=== PATIENT | male | born 1945 | race Asian ===

== ENCOUNTER → 2020-01-25 | Outpatient (CLI) | payer MEDICARE ==
[~2020-01-25] MED LIST: ATOR10TA9 PO; DABI150C PO; FENO160T PO; FINA5TAB4 PO; LISI40TA PO; TAMS0.4C2 PO; metoprolol PO
== END | disposition home or self-care (01) ==
LOC: CVU 09:43
PROVIDERS: ATTEND Internal Medicine Cardiovascular Disease
DX: Z01.810 Encounter for preprocedural cardiovascular examination (principal); I08.8 Other rheumatic multiple valve diseases; I11.9 Hypertensive heart disease without heart failure
CPT/HCPCS: 93306

== ENCOUNTER 2020-02-17 11:39 | Outpatient (CLI) | payer MEDICARE ==
[~2020-02-17 11:39] MED LIST changes: +REGADENOSON 0.4 MG/5 ML SYRINGE ONE
== END 2020-02-17 23:59 | disposition home or self-care (01) ==
LOC: CFH 11:39
PROVIDERS: ATTEND Internal Medicine Cardiovascular Disease
DX: Z01.810 Encounter for preprocedural cardiovascular examination (principal); I48.91 Unspecified atrial fibrillation; I10 Essential (primary) hypertension; I34.0 Nonrheumatic mitral (valve) insufficiency
CPT/HCPCS: 78452; 93017; A9502; J2785

== ENCOUNTER → 2020-03-21 | Outpatient (CLI) | payer MEDICARE ==
[~2020-03-21] MED LIST changes: +ALLO100T30 PO; +AMLO-150 PO; +APIX5TAB PO; +CALC1CAP8 PO; +MULT-717 PO; -REGADENOSON 0.4 MG/5 ML SYRINGE ONE; +VITA100C10 PO
== END | disposition home or self-care (01) ==
LOC: STAR 13:50
PROVIDERS: ATTEND Urology
DX: Z01.812 Encounter for preprocedural laboratory examination (principal); Z20.828 Contact with and (suspected) exposure to other viral communicable diseases; N40.1 Benign prostatic hyperplasia with lower urinary tract symptoms; I48.91 Unspecified atrial fibrillation
CPT/HCPCS: 87635; 93005

== ENCOUNTER 2020-03-27 07:23 | Day surgery (SDC) | payer MEDICARE ==
[~2020-03-27] VITALS: Ht 165.1 cm; Wt 73.0 kg
[2020-03-27] MEDS ORDERED: CHLORHEXIDINE 15 ML UDC MM STA (07:38)
[2020-03-27] MEDS ORDERED: CHLORHEXIDINE 15 ML UDC ONE (07:43)
[2020-03-27 07:54] VITALS: BP 108/72
[2020-03-27] MEDS ORDERED: LACTATED RINGERS 1,000 ML IV SCH (08:00)
[2020-03-27] MEDS ORDERED: FENTANYL PF 250 MCG/5ML ONE (08:00)
[2020-03-27] MEDS ORDERED: ONDANSETRON 2MG/ML, 2ML ONE (09:23)
[2020-03-27] MEDS ORDERED: NEOSTIGMINE 1 MG/ML, 10ML ONE (09:23)
[2020-03-27] MEDS ORDERED: PHENYLEPHRINE 10 MG/ML ONE (09:23)
[2020-03-27] MEDS ORDERED: CEFAZOLIN 1,000 MG ONE (09:23)
[2020-03-27] MEDS ORDERED: SUCCINYLCHOLINE 20 MG/ML, 10ML ONE (09:23)
[2020-03-27] MEDS ORDERED: ROCURONIUM 10MG/ML,5ML ONE (09:23)
[2020-03-27] MEDS ORDERED: LIDOCAINE-MPF 2% ,5ML ONE (09:23)
[2020-03-27] MEDS ORDERED: PROPOFOL 10 MG/ML, 20ML ONE (09:23)
[2020-03-27] MEDS ORDERED: GLYCOPYRROLATE 0.2MG/1ML, 5ML ONE (09:23)
[2020-03-27] MEDS ORDERED: DEXAMETHASONE 4 MG/ML, 1ML ONE (09:23)
[2020-03-27] MEDS ORDERED: METHOCARBAMOL 1,000 MG in DEXTROSE 5% 100 ML IV PRN (09:30)
[2020-03-27] MEDS ORDERED: METOCLOPRAMIDE 5 MG/ML, 2ML IVPush PRN (09:30)
[2020-03-27] MEDS ORDERED: METOPROLOL 1 MG/ML, 5ML IV PRN (09:30)
[2020-03-27] MEDS ORDERED: OXYcodone 5 MG/5 ML ORAL.SOL UDC PO PRN (09:30)
[2020-03-27] MEDS ORDERED: hydrALAzine 20 MG/ML, 1ML IV PRN (09:30)
[2020-03-27] MEDS ORDERED: ACETAMINOPHEN 325 MG TABLET PO PRN (09:30)
[2020-03-27] MEDS ORDERED: ONDANSETRON 2MG/ML, 2ML IVPush PRN (09:30)
[2020-03-27] MEDS ORDERED: PROMETHAZINE 12.5 MG SUPP PR PRN (09:30)
[2020-03-27] MEDS ORDERED: HYDROmorphone 1 MG/ML, 1ML INJ IVPush PRN (09:30)
[2020-03-27] MEDS ORDERED: EPHEDRINE 50 MG/ML, 1ML IVPush PRN (09:30)
[2020-03-27] MEDS ORDERED: LABETALOL 5MG/ML, 20ML IV PRN (09:30)
[2020-03-27] MEDS ORDERED: HALOPERIDOL 5 MG/ML IV PRN (09:30)
[2020-03-27] MEDS ORDERED: FENTANYL PF 100 MCG/2ML IV PRN (09:30)
== END 2020-03-27 13:35 | disposition home or self-care (01) ==
LOC: OUT 07:23
PROVIDERS: ATTEND Urology
DX: N40.1 Benign prostatic hyperplasia with lower urinary tract symptoms (principal); I48.91 Unspecified atrial fibrillation; I10 Essential (primary) hypertension; Z79.899 Other long term (current) drug therapy; Z87.891 Personal history of nicotine dependence; Z79.01 Long term (current) use of anticoagulants; Z98.890 Other specified postprocedural states; Z72.89 Other problems related to lifestyle; Z82.49 Family history of ischemic heart disease and other diseases of the circulatory system; Z83.3 Family history of diabetes mellitus
CPT/HCPCS: 52630; 88305; J0330; J0690; J1100; J2370; J2405; J2704; J2710; J3010; J7120

== ENCOUNTER 2020-04-04 23:40 | Inpatient (IN) | payer MEDICARE ==
[~2020-04-04] VITALS: Ht 165.1 cm; Wt 72.7 kg
[~2020-04-04 23:40] MED LIST changes: -LISI40TA PO; +LISI40TA9 PO
--- NOTE | 2020-04-05 00:40 | NUR ---
14 tajik 3-way muse catheter inserted- blood draining out. Pt reports instant relief after catheter insertion. UA collected and tubed to lab.
--- NOTE | 2020-04-05 00:48 | NUR ---
Pt.'s going home- will call to make sure pt's Joanna made it home per pt instructions. Joanna's phone number is [phone].
[2020-04-05 00:51] LABS: MICROSCOPIC INDICATED
[2020-04-05] MEDS ORDERED: SODIUM CHLORIDE 0.9% 1,000ML IVBOLUS ONE (01:00)
[2020-04-05] MEDS ORDERED: SODIUM CHLORIDE FLUSH 10ML SYR IVF ONE (01:00)
[2020-04-05 01:10] LABS: ALANINE AMINOTRANSFERASE 29 U/L (12-78); ALBUMIN 3.7 g/dL (3.4-5.0); ANION GAP 7 mmol/L (5-15); BASOPHILS % (AUTO) 0 % (0-1); CALCIUM 8.8 mg/dL (8.5-10.1); CHLORIDE 107 mmol/L (98-107); CREATININE 1.57 mg/dL (0.7-1.3); EOSINOPHILS % (AUTO) 2 % (1-7); LYMPHOCYTES % (AUTO) 11 % (22-44); MEAN CORPUSCULAR HEMOGLOBIN 31.1 pg (27.5-34.5); MEAN CORPUSCULAR HGB CONC 33.2 g/dL (33.2-36.2); MEAN PLATELET VOLUME 9.8 fL (7.4-10.4); MONOCYTES % (AUTO) 8 % (2-9); NEUTROPHILS % (AUTO) 78 % (42-75); PLATELET COUNT 191 x10^3/uL (130-400); RED BLOOD COUNT 4.87 x10^6/uL (4.38-5.82)
[2020-04-05 01:13] LABS: ALKALINE PHOSPHATASE 35 U/L (45-117); BILIRUBIN,TOTAL 0.5 mg/dL (0.2-1.0); TOTAL PROTEIN 7.5 g/dL (6.4-8.2)
[2020-04-05 01:30] LABS: INTERNATIONAL NORMALIZED RATIO 1.19 (0.93-1.1); PROTHROMBIN TIME 12.7 Seconds (9.6-11.5)
[2020-04-05 01:36] LABS: MD MORPH REVIEW ONLY
[2020-04-05 01:37] LABS: <PLATELET ESTIMATE> ADEQUATE; <RBC MORPHOLOGY> NORMAL; GIANT PLATELETS 1+; LARGE PLATELETS 1+
[2020-04-05] MEDS ORDERED: CEFTRIAXONE PMX 1GM/50ML 50 ML IV ONE (02:00)
--- NOTE | 2020-04-05 02:00 | NUR ---
Continuous bladder irrigation set-up. Blood draining.
[2020-04-05] MEDS ORDERED: CEFTRIAXONE PMX 1GM/50ML 50 ML ONE (02:37)
--- NOTE | 2020-04-05 02:49 | NUR ---
2500 mL blood red urine out. 2000 mL sterile water in.
--- NOTE | 2020-04-05 02:58 | NUR ---
Report to DANI Butler.
--- NOTE | 2020-04-05 03:17 | NUR ---
assumed care of pt at this time dr crooks at [facility] for admit
[2020-04-05] MEDS ORDERED: LABETALOL 5MG/ML, 20ML IVPush PRN (03:30)
[2020-04-05] MEDS ORDERED: PHARMACY MAY ADJ FOR RENAL FX MC PRN (03:30)
[2020-04-05] MEDS ORDERED: LACTATED RINGERS 1,000 ML IV SCH (03:30)
[2020-04-05] MEDS ORDERED: MELATONIN 5 MG TABLET PO PRN (03:30)
[2020-04-05] MEDS ORDERED: ONDANSETRON 2MG/ML, 2ML IVPush PRN (03:30)
[2020-04-05] MEDS ORDERED: ACETAMINOPHEN 325 MG TABLET PO PRN (03:30)
[2020-04-05 04:09] VITALS: BP 137/92
[2020-04-05 07:17] VITALS: BP 133/83
[2020-04-05] MEDS: SENNA/DOCUSATE TABLET PO SCH (07:57)
[2020-04-05] MEDS ORDERED: LISINOPRIL 40 MG TABLET PO SCH (09:00)
[2020-04-05] MEDS: AMLODIPINE 5 MG TABLET PO SCH (10:51)
[2020-04-05] MEDS: ALLOPURINOL 100 MG TABLET PO SCH (10:51)
[2020-04-05] MEDS: OPIUM/BELLADONNA SUPP.RECT 16.2-30 MG PR PRN (10:52)
[2020-04-05 11:12] LABS: BASOPHILS % (AUTO) 1 % (0-1); EOSINOPHILS % (AUTO) 1 % (1-7); LYMPHOCYTES % (AUTO) 13 % (22-44); MD NO; MEAN CORPUSCULAR HEMOGLOBIN 31.2 pg (27.5-34.5); MEAN CORPUSCULAR HGB CONC 33.2 g/dL (33.2-36.2); MEAN PLATELET VOLUME 9.9 fL (7.4-10.4); MONOCYTES % (AUTO) 8 % (2-9); NEUTROPHILS % (AUTO) 77 % (42-75); PLATELET COUNT 196 x10^3/uL (130-400); RED BLOOD COUNT 4.65 x10^6/uL (4.38-5.82); RED CELL DISTRIBUTION WIDTH 13.9 % (9.4-14.8)
[2020-04-05 11:19] LABS: ANION GAP 8 mmol/L (5-15); CALCIUM 8.8 mg/dL (8.5-10.1); CHLORIDE 107 mmol/L (98-107)
[2020-04-05 11:20] LABS: CREATININE 1.39 mg/dL (0.7-1.3)
[2020-04-05 12:51] VITALS: BP 138/95
[2020-04-05 12:52] VITALS: BP 138/95
[2020-04-05] MEDS: METOPROLOL TARTRATE 25 MG TAB PO SCH (13:06)
[2020-04-05] MEDS: FENOFIBRATE 54 MG TABLET PO SCH (13:07)
[2020-04-05] MEDS: MULTIVITAMIN 1 TABLET PO SCH (13:07)
[2020-04-05 20:58] VITALS: BP 143/79
[2020-04-05] MEDS: ATORVASTATIN 10 MG TABLET PO SCH (21:05)
[2020-04-06 00:38] VITALS: BP 121/77
[2020-04-06] MEDS: CEFTRIAXONE PMX 1GM/50ML 50 ML IV SCH (01:34)
[2020-04-06] MEDS: OPIUM/BELLADONNA SUPP.RECT 16.2-30 MG PR PRN (01:34)
[2020-04-06 05:18] LABS: BASOPHILS % (AUTO) 1 % (0-1); EOSINOPHILS % (AUTO) 3 % (1-7); LYMPHOCYTES % (AUTO) 17 % (22-44); MEAN CORPUSCULAR HEMOGLOBIN 31.1 pg (27.5-34.5); MEAN CORPUSCULAR HGB CONC 32.9 g/dL (33.2-36.2); MEAN PLATELET VOLUME 9.9 fL (7.4-10.4); MONOCYTES % (AUTO) 8 % (2-9); NEUTROPHILS % (AUTO) 72 % (42-75); PLATELET COUNT 187 x10^3/uL (130-400); RED BLOOD COUNT 4.49 x10^6/uL (4.38-5.82)
[2020-04-06 05:23] LABS: MD NO
[2020-04-06 05:28] LABS: ANION GAP 6 mmol/L (5-15); CALCIUM 8.7 mg/dL (8.5-10.1); CHLORIDE 109 mmol/L (98-107)
[2020-04-06 06:57] VITALS: BP 119/79
[2020-04-06] MEDS: AMLODIPINE 5 MG TABLET PO SCH (08:18)
[2020-04-06] MEDS: SENNA/DOCUSATE TABLET PO SCH (08:18)
[2020-04-06] MEDS: FENOFIBRATE 54 MG TABLET PO SCH (08:18)
[2020-04-06] MEDS: MULTIVITAMIN 1 TABLET PO SCH (08:18)
[2020-04-06] MEDS: ALLOPURINOL 100 MG TABLET PO SCH (08:18)
[2020-04-06] MEDS: METOPROLOL TARTRATE 25 MG TAB PO SCH (08:19)
[2020-04-06 12:13] VITALS: BP 121/78
[2020-04-06 19:23] VITALS: BP 143/88
[2020-04-07] MEDS: ATORVASTATIN 10 MG TABLET PO SCH ×2 (00:21→22:17)
[2020-04-07 00:37] VITALS: BP 132/91
[2020-04-07] MEDS: CEFTRIAXONE PMX 1GM/50ML 50 ML IV SCH (02:00)
[2020-04-07 04:55] LABS: BASOPHILS % (AUTO) 1 % (0-1); EOSINOPHILS % (AUTO) 3 % (1-7); LYMPHOCYTES % (AUTO) 19 % (22-44); MD NO; MEAN CORPUSCULAR HEMOGLOBIN 31.2 pg (27.5-34.5); MEAN CORPUSCULAR HGB CONC 33.5 g/dL (33.2-36.2); MEAN PLATELET VOLUME 10.4 fL (7.4-10.4); MONOCYTES % (AUTO) 9 % (2-9); NEUTROPHILS % (AUTO) 68 % (42-75); PLATELET COUNT 201 x10^3/uL (130-400); RED BLOOD COUNT 4.55 x10^6/uL (4.38-5.82); RED CELL DISTRIBUTION WIDTH 14.1 % (9.4-14.8)
[2020-04-07 05:04] LABS: ANION GAP 6 mmol/L (5-15); CALCIUM 8.6 mg/dL (8.5-10.1); CHLORIDE 109 mmol/L (98-107); CREATININE 1.53 mg/dL (0.7-1.3)
[2020-04-07 07:15] VITALS: BP 134/83
[2020-04-07] MEDS: SENNA/DOCUSATE TABLET PO SCH (08:18)
[2020-04-07] MEDS: VITAMIN E 400 UNITS CAPSULE PO SCH (08:18)
[2020-04-07] MEDS: MULTIVITAMIN 1 TABLET PO SCH (08:19)
[2020-04-07] MEDS: AMLODIPINE 5 MG TABLET PO SCH (08:19)
[2020-04-07] MEDS: CALCIUM/VITAMIN D3 250-125 TABLET PO SCH (08:19)
[2020-04-07] MEDS: METOPROLOL TARTRATE 25 MG TAB PO SCH (08:19)
[2020-04-07] MEDS: FENOFIBRATE 54 MG TABLET PO SCH (08:19)
[2020-04-07] MEDS: ALLOPURINOL 100 MG TABLET PO SCH (08:19)
[2020-04-07] MEDS ORDERED: AMLO-150 PO (10:23)
[2020-04-07 13:17] VITALS: BP 107/72
[2020-04-07 19:59] VITALS: BP 125/89
[2020-04-08 00:33] VITALS: BP 137/93
[2020-04-08] MEDS: CEFTRIAXONE PMX 1GM/50ML 50 ML IV SCH (02:58)
[2020-04-08 06:55] VITALS: BP 124/84
[2020-04-08 07:14] LABS: ANION GAP 5 mmol/L (5-15); CALCIUM 9.2 mg/dL (8.5-10.1); CHLORIDE 108 mmol/L (98-107); CREATININE 1.53 mg/dL (0.7-1.3)
[2020-04-08 07:17] LABS: INTERNATIONAL NORMALIZED RATIO 1.1 (0.93-1.1); PROTHROMBIN TIME 11.8 Seconds (9.6-11.5)
[2020-04-08 07:32] LABS: BASOPHILS % (AUTO) 1 % (0-1); EOSINOPHILS % (AUTO) 3 % (1-7); LYMPHOCYTES % (AUTO) 13 % (22-44); MEAN CORPUSCULAR HEMOGLOBIN 31.5 pg (27.5-34.5); MEAN CORPUSCULAR HGB CONC 33.6 g/dL (33.2-36.2); MEAN PLATELET VOLUME 9.8 fL (7.4-10.4); MONOCYTES % (AUTO) 9 % (2-9); NEUTROPHILS % (AUTO) 74 % (42-75); PLATELET COUNT 193 x10^3/uL (130-400); RED BLOOD COUNT 4.59 x10^6/uL (4.38-5.82); RED CELL DISTRIBUTION WIDTH 13.9 % (9.4-14.8)
[2020-04-08 07:38] LABS: MD NO
[2020-04-08] MEDS: FENOFIBRATE 54 MG TABLET PO SCH (08:15)
[2020-04-08] MEDS: ALLOPURINOL 100 MG TABLET PO SCH (08:15)
[2020-04-08] MEDS: AMLODIPINE 5 MG TABLET PO SCH (08:15)
[2020-04-08] MEDS: MULTIVITAMIN 1 TABLET PO SCH (08:15)
[2020-04-08] MEDS: METOPROLOL TARTRATE 25 MG TAB PO SCH (08:15)
[2020-04-08] MEDS: SENNA/DOCUSATE TABLET PO SCH (08:15)
[2020-04-08 12:45] VITALS: BP 110/76
[2020-04-08 19:34] VITALS: BP 121/80
[2020-04-08] MEDS: ATORVASTATIN 10 MG TABLET PO SCH (21:25)
[2020-04-09 00:30] VITALS: BP 135/89
[2020-04-09] MEDS: CEFTRIAXONE PMX 1GM/50ML 50 ML IV SCH (02:25)
[2020-04-09 07:30] VITALS: BP 142/93
[2020-04-09 07:36] LABS: BASOPHILS % (AUTO) 1 % (0-1); EOSINOPHILS % (AUTO) 2 % (1-7); LYMPHOCYTES % (AUTO) 11 % (22-44); MEAN CORPUSCULAR HEMOGLOBIN 31.3 pg (27.5-34.5); MEAN CORPUSCULAR HGB CONC 33.3 g/dL (33.2-36.2); MEAN PLATELET VOLUME 9.2 fL (7.4-10.4); MONOCYTES % (AUTO) 8 % (2-9); NEUTROPHILS % (AUTO) 78 % (42-75); PLATELET COUNT 192 x10^3/uL (130-400); RED BLOOD COUNT 4.39 x10^6/uL (4.38-5.82); RED CELL DISTRIBUTION WIDTH 13.8 % (9.4-14.8)
[2020-04-09 07:47] LABS: ANION GAP 6 mmol/L (5-15); CALCIUM 8.6 mg/dL (8.5-10.1); CHLORIDE 108 mmol/L (98-107)
[2020-04-09 07:49] LABS: MD NO
[2020-04-09] MEDS: CALCIUM/VITAMIN D3 250-125 TABLET PO SCH (09:00)
[2020-04-09] MEDS: ALLOPURINOL 100 MG TABLET PO SCH (09:25)
[2020-04-09] MEDS: VITAMIN E 400 UNITS CAPSULE PO SCH (09:25)
[2020-04-09] MEDS: SENNA/DOCUSATE TABLET PO SCH (09:25)
[2020-04-09] MEDS: METOPROLOL TARTRATE 25 MG TAB PO SCH (09:27)
[2020-04-09] MEDS: FENOFIBRATE 54 MG TABLET PO SCH (09:28)
[2020-04-09] MEDS: MULTIVITAMIN 1 TABLET PO SCH (09:28)
[2020-04-09] MEDS: AMLODIPINE 5 MG TABLET PO SCH (09:32)
[2020-04-09 13:14] VITALS: BP 134/93
[2020-04-09 21:27] VITALS: BP 128/86
[2020-04-09] MEDS: ATORVASTATIN 10 MG TABLET PO SCH (21:31)
[2020-04-10 01:29] VITALS: BP 138/89
[2020-04-10] MEDS: CEFTRIAXONE PMX 1GM/50ML 50 ML IV SCH (01:35)
[2020-04-10 08:07] VITALS: BP 131/85
[2020-04-10] MEDS: ALLOPURINOL 100 MG TABLET PO SCH (08:43)
[2020-04-10] MEDS: MULTIVITAMIN 1 TABLET PO SCH (08:43)
[2020-04-10] MEDS: FENOFIBRATE 54 MG TABLET PO SCH (08:43)
[2020-04-10] MEDS: SENNA/DOCUSATE TABLET PO SCH (08:43)
[2020-04-10] MEDS: AMLODIPINE 5 MG TABLET PO SCH (08:44)
[2020-04-10] MEDS: METOPROLOL TARTRATE 25 MG TAB PO SCH (08:44)
[2020-04-10] MEDS ORDERED: AMOX1TAB64 PO (08:49)
[2020-04-10 14:05] VITALS: BP 132/64
== END 2020-04-10 14:15 | disposition home or self-care (01) | DRG 690 ==
LOC: ED 04-05 01:37 → EDIP 04-05 02:46 → 4NE 04-05 03:43 → DCLOUNGE 04-10 14:09
PROVIDERS: ADMIT Family Medicine; ATTEND Internal Medicine
PROC: 0T9B70Z Drainage of Bladder with Drainage Device, Via Natural or Artificial Opening (ICD-10-PCS; principal; 2020-04-05)
DX: N30.01 Acute cystitis with hematuria (principal); N13.8 Other obstructive and reflux uropathy; E78.5 Hyperlipidemia, unspecified; I48.91 Unspecified atrial fibrillation; M10.9 Gout, unspecified; N18.30 Chronic kidney disease, stage 3 unspecified; N40.1 Benign prostatic hyperplasia with lower urinary tract symptoms; R33.8 Other retention of urine; Z82.49 Family history of ischemic heart disease and other diseases of the circulatory system; Z90.79 Acquired absence of other genital organ(s)
CPT/HCPCS: 36415; 76770; 80048; 80053; 81001; 83735; 85014; 85018; 85025; 85610; 85730; 87086; 99285; G0378; J0696; J7030; J7120